=== PATIENT | male | born 1950 | race Caucasian/White ===

== ENCOUNTER 2018-01-28 12:47 | Inpatient (IN) | payer BC, MEDICARE ==
[~2018-01-28] VITALS: Ht 190.5 cm; Wt 116.0 kg
[~2018-01-28 12:47] MED LIST: ATENOLOL; AUGMENTIN 875 M1 TAB PO; CLONAZEPAM1 MG PO; ESCITALOPRAM; NORCO 325 MG-51 TAB PO; TRAZODONE100 MG PO; [UNRECOGNIZED DRUG - OTHER]
[2018-01-28 16:41] LABS: HEMATOCRIT 37.4 % (42.0-52.0); HEMOGLOBIN 12.5 g/dl (13.5-18.0); MEAN CELL VOLUME 84 fl (80.0-100.0); MEAN CORPUSCULAR HEMOGLOBIN 28 pg (27.0-31.0); MEAN CORPUSCULAR HGB CONC 33 g/dl (33.0-37.0); PLATELET COUNT 155 K/mm3 (130-400); RED BLOOD COUNT 4.43 M/mm3 (4.20-5.60); REDCELL DISTRIBUTION WIDTH-CV 13.5 % (11.5-14.5)
[2018-01-28 17:07] LABS: ALBUMIN 3.5 gm/dL (3.5-5.0); BILIRUBIN,TOTAL 1.1 mg/dL (0.0-1.0); CALCIUM 9.2 mg/dL (8.4-10.2); CREATININE, serum 0.8 mg/dL (0.66-1.25); POTASSIUM 3.8 mmol/L (3.4-5.0); TOTAL PROTEIN 6.7 gm/dL (6.4-8.2)
[2018-01-28 17:21] LABS: BAND 3 % (0-10); EOSINOPHIL 1 % (0-4); LYMPHOCYTE 15 % (20.0-51.0); NEUTROPHILS 78 % (42.0-75.2)
[2018-01-28 17:22] LABS: ANISOCYTOSIS 1+; PLATELET ESTIMATE NORMAL (NORMAL)
[2018-01-28 17:33] VITALS: BP 133/71; PULSE 76; TEMP 98.2
[2018-01-28 17:58] VITALS: BP 130/69; PULSE 75; TEMP 99
[2018-01-28 20:34] VITALS: BP 137/79; PULSE 96; TEMP 99
[2018-01-29 01:44] VITALS: BP 139/65; PULSE 73; TEMP 97.9
[2018-01-29 05:32] VITALS: BP 147/71; PULSE 64; TEMP 98.3
[2018-01-29 06:43] LABS: BASO % 0.3 % (0.0-2.0); EOS # 0.1 (0.0-0.7); EOS % 3.2 % (0-4.0); GRAN # 2.3 (1.4-6.5); GRAN % 68.8 % (42.2-75.2); HEMATOCRIT 37.4 % (42.0-52.0); HEMOGLOBIN 12.3 g/dl (13.5-18.0); LYMPH # 0.7 (1.2-3.4); MEAN CELL VOLUME 86 fl (80.0-100.0); MEAN CORPUSCULAR HEMOGLOBIN 28 pg (27.0-31.0); MEAN CORPUSCULAR HGB CONC 33 g/dl (33.0-37.0); MONO # 0.3 (0.1-0.6); MONO % 7.4 % (1.7-9.3); PLATELET COUNT 150 K/mm3 (130-400); RED BLOOD COUNT 4.37 M/mm3 (4.20-5.60); REDCELL DISTRIBUTION WIDTH-CV 13.9 % (11.5-14.5)
[2018-01-29 07:03] LABS: CALCIUM 8.8 mg/dL (8.4-10.2); CREATININE, serum 0.69 mg/dL (0.66-1.25); POTASSIUM 3.8 mmol/L (3.4-5.0)
[2018-01-29 10:21] VITALS: BP 153/70; PULSE 77; TEMP 97.9
[2018-01-29 13:24] VITALS: BP 134/75; PULSE 72
[2018-01-29 17:36] VITALS: BP 146/75; PULSE 71; TEMP 98.5
[2018-01-29 21:58] VITALS: BP 138/78; PULSE 65; TEMP 98.1
[2018-01-30 02:25] VITALS: BP 132/69; PULSE 74; TEMP 98.3
[2018-01-30 06:04] VITALS: BP 139/74; PULSE 87; TEMP 98.1
[2018-01-30 07:07] LABS: BASO % 0.9 % (0.0-2.0); EOS # 0.2 (0.0-0.7); EOS % 6.3 % (0-4.0); GRAN # 1.9 (1.4-6.5); GRAN % 53.2 % (42.2-75.2); HEMATOCRIT 37.1 % (42.0-52.0); LYMPH # 1.1 (1.2-3.4); LYMPH % 30.4 % (20.0-51.0); MEAN CELL VOLUME 89 fl (80.0-100.0); MEAN CORPUSCULAR HEMOGLOBIN 29 pg (27.0-31.0); MEAN CORPUSCULAR HGB CONC 32 g/dl (33.0-37.0); MEAN PLATELET VOLUME 12.1 fl (7.4-10.4); MONO # 0.3 (0.1-0.6); MONO % 8.9 % (1.7-9.3); PLATELET COUNT 167 K/mm3 (130-400); RED BLOOD COUNT 4.17 M/mm3 (4.20-5.60)
[2018-01-30 07:14] LABS: HEMOGLOBIN 11.9 g/dl (13.5-18.0)
[2018-01-30 07:30] LABS: ALBUMIN 3.1 gm/dL (3.5-5.0); BILIRUBIN,TOTAL 0.4 mg/dL (0.0-1.0); CALCIUM 8.6 mg/dL (8.4-10.2); CREATININE, serum 0.75 mg/dL (0.66-1.25); POTASSIUM 3.8 mmol/L (3.4-5.0); TOTAL PROTEIN 6.2 gm/dL (6.4-8.2)
[2018-01-30 08:12] LABS: PHOSPHOROUS 3.7 mg/dL (2.5-4.5)
[2018-01-30 08:19] LABS: PRE ALBUMIN 20.2 mg/dL (17.6-36.0)
[2018-01-30 10:12] VITALS: BP 132/73; PULSE 68; TEMP 98
[2018-01-30] MEDS ORDERED: LOVENOX120 MG/0.8 SQ (12:49)
[2018-01-30 14:32] VITALS: BP 142/79; PULSE 67; TEMP 98.1
== END 2018-01-30 15:14 | disposition home or self-care (01) | DRG 166 ==
LOC: COL.RAD 12:47 → SURG 14:57 → MEDICAL 01-29 09:24 → SURG 01-29 09:24
PROVIDERS: Internal Medicine
PROC: 06H03DZ Insertion of Intraluminal Device into Inferior Vena Cava, Percutaneous Approach (ICD-10-PCS; principal; 2018-01-29)
DX: I26.99 Other pulmonary embolism without acute cor pulmonale (principal); E43 Unspecified severe protein-calorie malnutrition; I82.4Z1 Acute embolism and thrombosis of unspecified deep veins of right distal lower extremity; I82.411 Acute embolism and thrombosis of right femoral vein; C15.5 Malignant neoplasm of lower third of esophagus; C78.6 Secondary malignant neoplasm of retroperitoneum and peritoneum; I10 Essential (primary) hypertension; Z85.820 Personal history of malignant melanoma of skin
CPT/HCPCS: 99222-AI; 99232-AI; 99239; J2270; J7120; Q9967

== ENCOUNTER → 2018-03-02 | Outpatient (CLI) | payer BC ==
[~2018-03-02] MED LIST changes: +LOVENOX120 MG/0.8 SQ
== END ==
LOC: COL.RAD 09:55
DX: K22.9 Disease of esophagus, unspecified (principal); K66.8 Other specified disorders of peritoneum; R22.2 Localized swelling, mass and lump, trunk; N28.1 Cyst of kidney, acquired; I51.7 Cardiomegaly; Z95.828 Presence of other vascular implants and grafts; Z93.4 Other artificial openings of gastrointestinal tract status; Z97.8 Presence of other specified devices
CPT/HCPCS: Q9967

== ENCOUNTER 2018-03-31 12:52 | Emergency (ER) | payer BC ==
[~2018-03-31] VITALS: Ht 190.5 cm; Wt 112.3 kg
[2018-03-31 12:56] VITALS: TEMP 97.7
[2018-03-31 13:56] LABS: BASO % 0.4 % (0.0-2.0); EOS % 0.4 % (0-4.0); GRAN # 4.3 (1.4-6.5); GRAN % 61.4 % (42.2-75.2); HEMATOCRIT 42.7 % (42.0-52.0); HEMOGLOBIN 14.3 g/dl (13.5-18.0); LYMPH # 1.8 (1.2-3.4); LYMPH % 25.2 % (20.0-51.0); MEAN CELL VOLUME 92 fl (80.0-100.0); MEAN CORPUSCULAR HEMOGLOBIN 31 pg (27.0-31.0); MEAN CORPUSCULAR HGB CONC 34 g/dl (33.0-37.0); MEAN PLATELET VOLUME 10.2 fl (7.4-10.4); MONO # 0.8 (0.1-0.6); MONO % 11.9 % (1.7-9.3); PLATELET COUNT 201 K/mm3 (130-400); RED BLOOD COUNT 4.64 M/mm3 (4.20-5.60); REDCELL DISTRIBUTION WIDTH-CV 18.8 % (11.5-14.5)
[2018-03-31 13:58] LABS: INR 1.2 (0.8-3.0); PROTHROMBIN TIME 13.7 SECONDS (9.7-12.8)
[2018-03-31 14:00] LABS: PARTIAL THROMBOPLASTIN TIME 36.6 SECONDS (26.0-37.0)
[2018-03-31 14:07] LABS: ALBUMIN 3.7 gm/dL (3.5-5.0); CALCIUM 9.8 mg/dL (8.4-10.2); CREATININE, serum 0.81 mg/dL (0.66-1.25); POTASSIUM 4.5 mmol/L (3.4-5.0); TOTAL PROTEIN 7.4 gm/dL (6.4-8.2)
[2018-03-31] MEDS ORDERED: ELIQUIS 5MG PO (14:39)
[2018-03-31] MEDS ORDERED: PHENERGAN 25 TA25 MG PO (14:39)
[2018-03-31] MEDS ORDERED: ZOFRAN8 MG PO (14:40)
[2018-03-31 16:28] LABS: COLLECTION METHOD CLEAN CATCH
[2018-03-31 16:39] LABS: ACETAMINOPHEN < 10 ug/mL (10-30); ALCOHOL(ethanol),MEDICAL < 10 mg/dL; SALICYLATE < 1.0 mg/dL
[2018-03-31 16:45] LABS: TRICYCLIC ANTIDEPRESS URINE NEGATIVE
[2018-03-31 16:48] LABS: MUCOUS Present /lpf; PH 7 (5-8); SQUAMOUS EPITHELIAL None Seen /hpf; URINE APPEARANCE Cloudy; URINE BACTERIA None Seen /hpf; URINE BILIRUBIN Negative (NEGATIVE); URINE BLOOD 3+ (NEGATIVE); URINE COLOR Amber; URINE GLUCOSE 1+ (NEGATIVE); URINE KETONE Negative (NEGATIVE); URINE LEUKOCYTE ESTERASE Negative (NEGATIVE); URINE NITRATE Negative (NEGATIVE); URINE PROTEIN(semi-quant) 2+ (NEGATIVE); URINE RBC >50 /hpf
[2018-03-31] MEDS ORDERED: NORCO 325 MG-51 TAB PO (17:51)
[2018-03-31 18:42] VITALS: BP 122/76; PULSE 87
== END 2018-03-31 18:44 | disposition home or self-care (01) ==
LOC: COL.ER 12:52
PROVIDERS: Emergency Medicine
DX: C15.9 Malignant neoplasm of esophagus, unspecified (principal); E86.0 Dehydration; N20.0 Calculus of kidney
CPT/HCPCS: J2405; J3010; J7030; Q9967

== ENCOUNTER 2018-05-09 21:12 | Emergency (ER) | payer BC ==
[~2018-05-09] VITALS: Ht 190.5 cm; Wt 110.9 kg
[~2018-05-09 21:12] MED LIST changes: +ELIQUIS 5MG PO; +PHENERGAN 25 TA25 MG PO; +ZOFRAN8 MG PO
[2018-05-09 21:23] VITALS: BP 122/74; PULSE 95; TEMP 97.2
[2018-05-09 22:21] LABS: BASO % 0.3 % (0.0-2.0); EOS % 0.3 % (0-4.0); GRAN # 1.8 (1.4-6.5); GRAN % 49.7 % (42.2-75.2); HEMATOCRIT 38.6 % (42.0-52.0); HEMOGLOBIN 13.2 g/dl (13.5-18.0); LYMPH # 1.3 (1.2-3.4); LYMPH % 35.7 % (20.0-51.0); MEAN CELL VOLUME 96 fl (80.0-100.0); MEAN CORPUSCULAR HEMOGLOBIN 33 pg (27.0-31.0); MEAN CORPUSCULAR HGB CONC 34 g/dl (33.0-37.0); MEAN PLATELET VOLUME 10.1 fl (7.4-10.4); MONO # 0.5 (0.1-0.6); MONO % 13.4 % (1.7-9.3); PLATELET COUNT 216 K/mm3 (130-400); RED BLOOD COUNT 4.03 M/mm3 (4.20-5.60); REDCELL DISTRIBUTION WIDTH-CV 16.4 % (11.5-14.5)
[2018-05-09 22:32] LABS: ALBUMIN 3.4 gm/dL (3.5-5.0); BILIRUBIN,TOTAL 0.8 mg/dL (0.0-1.0); CALCIUM 9.4 mg/dL (8.4-10.2); CREATININE, serum 0.65 mg/dL (0.66-1.25); POTASSIUM 4.1 mmol/L (3.4-5.0); TOTAL PROTEIN 6.5 gm/dL (6.4-8.2)
[2018-05-09 23:46] LABS: COLLECTION METHOD CLEAN CATCH
[2018-05-10 00:09] LABS: MUCOUS Present /lpf; PH 9 (5-8); SQUAMOUS EPITHELIAL None Seen /hpf; URINE APPEARANCE Hazy; URINE BACTERIA None Seen /hpf; URINE BILIRUBIN Negative (NEGATIVE); URINE BLOOD 1+ (NEGATIVE); URINE COLOR Yellow; URINE GLUCOSE Negative (NEGATIVE); URINE KETONE Negative (NEGATIVE); URINE LEUKOCYTE ESTERASE Negative (NEGATIVE); URINE NITRATE Negative (NEGATIVE); URINE PROTEIN(semi-quant) 2+ (NEGATIVE); URINE RBC >50 /hpf; URINE UROBILINOGEN >=4.0 mg/dL (NEGATIVE)
== END 2018-05-10 00:44 | disposition home or self-care (01) ==
LOC: COL.ER 21:12
PROVIDERS: Emergency Medicine
DX: C15.9 Malignant neoplasm of esophagus, unspecified (principal); R11.10 Vomiting, unspecified; T45.1X5A Adverse effect of antineoplastic and immunosuppressive drugs, initial encounter
CPT/HCPCS: J0780; J1644; J2405; J7030

== ENCOUNTER → 2018-05-11 | Outpatient (CLI) | payer BC | LOC: COL.RAD 08:23 | DX: C15.5 Malignant neoplasm of lower third of esophagus (principal); R18.8 Other ascites; K66.8 Other specified disorders of peritoneum | CPT/HCPCS: Q9967 ==